=== PATIENT | female | born 2000 | race Two or more races ===

== ENCOUNTER 2023-02-12 18:16 | Emergency (ER) | payer OTHER ==
[~2023-02-12] VITALS: Ht 167.6 cm; Wt 63.6 kg
[2023-02-12] MEDS ORDERED: HYDROcodone-ACET 10/325MG TAB PO ONE (19:00)
[2023-02-12] MEDS ORDERED: KETOROLAC TROMETH 60MG/2ML VIAL IM ONE (22:30)
[2023-02-12] MEDS ORDERED: HYDR-4902 PO (22:47)
[2023-02-12] MEDS ORDERED: IBUP1TAB5 PO (22:47)
[2023-02-12 23:13] VITALS: BP 119/69
== END 2023-02-12 23:26 | disposition home or self-care (01) ==
LOC: ER 18:16 → EDBD 18:16 → ER 23:26
DX: S40.022A Contusion of left upper arm, initial encounter (principal); S09.90XA Unspecified injury of head, initial encounter; V89.2XXA Person injured in unspecified motor-vehicle accident, traffic, initial encounter; Y93.89 Activity, other specified; Y92.89 Other specified places as the place of occurrence of the external cause; Y99.8 Other external cause status
CPT/HCPCS: 70450; 72125; 73060; 96372; 99285; J1885